=== PATIENT | female | born 1960 | race Caucasian/White ===

== ENCOUNTER 2018-01-26 17:21 | Inpatient (IN) ==
[2018-01-26] MEDS ORDERED: SODIUM CHLORIDE 0.9% 1,000 ML IV STA (18:25)
[2018-01-26] MEDS ORDERED: ONDANSETRON 4 MG/2 ML VIAL IV STA (18:25)
[2018-01-26 18:29] LABS: Basophils % 0.2 % (0.0-0.8); Eosinophils % 0.2 % (0.00-10.9); Hematocrit 23.7 VOL% (35.7-47.0); Hemoglobin 7.3 GM/DL (12.0-16.0); Immature Granulocytes % 0.6 %; Immature Granulocytes Absolute 0.03 #; Lymphocytes # 1.2 10*3/uL (1.4-4.0); Lymphocytes % 24.1 % (21.3-54.2); Mean Corpuscular HGB Conc 30.8 GM/DL (32-36); Mean Corpuscular Hemoglobin 24 PG (27-34); Mean Platelet Volume 9.9 FL (9.6-12.0); Monocytes # 0.4 10*3/uL (0.11-0.8); Monocytes % 7.8 % (1.7-12.7); Neutrophils # 3.3 10*3/uL (1.4-7.4); Neutrophils % 67.1 % (38.7-73.9); Platelet Count 209 T/CUMM (130-400); Red Cell Distribution Width 17.7 % (9.3-17.3)
[2018-01-26 18:41] LABS: Alanine Aminotransferase 19 U/L (13-56); Albumin 2.7 G/DL (3.4-5.0); Alkaline Phosphatase 135 U/L (45-117); Aspartate Amino Transferase 34 U/L (0-37); Bilirubin,Total < 0.39 MG/DL (0.2-1.0); Blood Urea Nitrogen 34 MG/DL (7-18); Calcium 8.7 MG/DL (8.5-10.1); Glucose 122 MG/DL (74-106); Osmolality,Calculated 270.7 MOS/KG (273-304); Potassium 3.3 MMOL/L (3.5-5.1); Sodium 131 MMOL/L (136-145); Total Protein 6.9 G/DL (6.4-8.3)
[2018-01-26 18:53] LABS: Apearance,Urine CLEAR (Clear); Bilirubin,Urine Negative (Negative); Blood, Urine Negative (Negative); Glucose,Urine (UA) Negative (Negative); Ketones,Urine Negative (Negative); Nitrite,Urine Negative (Negative); Protein,Urine 30 MG/DL; RBC,Urine 1 /HPF (0-4); Squamous Epithelial Cell,Urine Occasional /HPF (0-10); Urine Color Yellow (Yellow); Urine Specific Gravity 1.011 (1.001-1.035); Urine Urobilinogen < 2.0 EU/DL (0.2-1.0); WBC,Urine 2 /HPF (0-6)
[2018-01-26] MEDS ORDERED: DEXTROSE 5% NACL 0.45% 1,000 ML IV SCH (20:58)
[2018-01-26] MEDS ORDERED: PROMETHAZINE INJ 25 MG in SODIUM CHLORIDE 0.9% 50 ML IV PRN (20:58)
[2018-01-26] MEDS: POTASSIUM CHLORIDE INJ 40 MEQ in DEXTROSE 5% 1,000 ML IV SCH (21:47)
[2018-01-26] MEDS: HYDROmorphone 2 MG/1 ML VIAL IV PRN (22:48)
[2018-01-27] MEDS: HYDROmorphone 2 MG/1 ML VIAL IV PRN ×10 (01:29→23:00)
[2018-01-27] MEDS ORDERED: SODIUM CHLORIDE 0.9% 1,000 ML IV PRN (03:10)
[2018-01-27 06:34] LABS: Albumin 2.8 G/DL (3.4-5.0); Bilirubin,Total 0.4 MG/DL (0.2-1.0); Calcium 8.2 MG/DL (8.5-10.1); Osmolality,Calculated 271.4 MOS/KG (273-304); Potassium 3.1 MMOL/L (3.5-5.1); Total Protein 6.4 G/DL (6.4-8.3)
[2018-01-27 06:41] LABS: Basophils % 0.3 % (0.0-0.8); Eosinophils % 0.8 % (0.00-10.9); Hematocrit 20.7 VOL% (35.7-47.0); Immature Granulocytes % 0.5 %; Immature Granulocytes Absolute 0.02 #; Lymphocytes # 1.2 10*3/uL (1.4-4.0); Lymphocytes % 31.6 % (21.3-54.2); Mean Corpuscular HGB Conc 31.4 GM/DL (32-36); Mean Corpuscular Hemoglobin 24 PG (27-34); Mean Platelet Volume 10.4 FL (9.6-12.0); Monocytes # 0.4 10*3/uL (0.11-0.8); Monocytes % 10.2 % (1.7-12.7); Neutrophils # 2.1 10*3/uL (1.4-7.4); Neutrophils % 56.6 % (38.7-73.9); Red Blood Count 2.69 MC/CUMM (3.8-5.5); Red Cell Distribution Width 17.8 % (9.3-17.3); White Blood Count 3.7 T/CUMM (4-12)
[2018-01-27 06:45] LABS: Hemoglobin 6.5 GM/DL (12.0-16.0); Platelet Count 165 T/CUMM (130-400)
[2018-01-27] MEDS: PANTOPRAZOLE 40 MG TABLET PO SCH (08:40)
[2018-01-27] MEDS: CLOTRIMAZOLE 1% CREAM 15 GM TUBE TOP SCH ×2 (14:33→20:19)
[2018-01-27] MEDS: POTASSIUM CHLORIDE INJ 40 MEQ in DEXTROSE 5% 1,000 ML IV SCH (22:34)
[2018-01-28] MEDS: HYDROmorphone 2 MG/1 ML VIAL IV PRN ×9 (01:06→21:33)
[2018-01-28] MEDS: POTASSIUM CHLORIDE INJ 40 MEQ in DEXTROSE 5% 1,000 ML IV SCH ×3 (01:13→21:36)
[2018-01-28 05:13] LABS: Basophils % 0.2 % (0.0-0.8); Eosinophils % 0.7 % (0.00-10.9); Hematocrit 26.1 VOL% (35.7-47.0); Immature Granulocytes % 0.7 %; Immature Granulocytes Absolute 0.03 #; Lymphocytes # 0.9 10*3/uL (1.4-4.0); Lymphocytes % 21.6 % (21.3-54.2); Mean Corpuscular HGB Conc 31.8 GM/DL (32-36); Mean Corpuscular Hemoglobin 25 PG (27-34); Mean Corpuscular Volume 78.1 FL (87-102); Mean Platelet Volume 10.1 FL (9.6-12.0); Monocytes # 0.5 10*3/uL (0.11-0.8); Monocytes % 10.5 % (1.7-12.7); Neutrophils # 2.9 10*3/uL (1.4-7.4); Neutrophils % 66.3 % (38.7-73.9); Platelet Count 154 T/CUMM (130-400); Red Blood Count 3.34 MC/CUMM (3.8-5.5); Red Cell Distribution Width 17.3 % (9.3-17.3); White Blood Count 4.3 T/CUMM (4-12)
[2018-01-28 05:18] LABS: Hemoglobin 8.3 GM/DL (12.0-16.0)
[2018-01-28 05:50] LABS: Albumin 2.4 G/DL (3.4-5.0); Bilirubin,Total 0.6 MG/DL (0.2-1.0); Calcium 8.6 MG/DL (8.5-10.1); Osmolality,Calculated 267.5 MOS/KG (273-304); Potassium 3.5 MMOL/L (3.5-5.1); Total Protein 6.1 G/DL (6.4-8.3)
[2018-01-28] MEDS: PANTOPRAZOLE 40 MG TABLET PO SCH (08:42)
[2018-01-28] MEDS: CLOTRIMAZOLE 1% CREAM 15 GM TUBE TOP SCH ×2 (08:42→21:40)
[2018-01-29] MEDS: HYDROmorphone 2 MG/1 ML VIAL IV PRN ×9 (00:17→23:25)
[2018-01-29 04:56] LABS: Basophils % 0.3 % (0.0-0.8); Eosinophils % 0.3 % (0.00-10.9); Hematocrit 28.5 VOL% (35.7-47.0); Hemoglobin 8.8 GM/DL (12.0-16.0); Immature Granulocytes % 0.5 %; Immature Granulocytes Absolute 0.03 #; Lymphocytes # 1.6 10*3/uL (1.4-4.0); Lymphocytes % 26.1 % (21.3-54.2); Mean Corpuscular HGB Conc 30.9 GM/DL (32-36); Mean Corpuscular Hemoglobin 25 PG (27-34); Mean Corpuscular Volume 80.7 FL (87-102); Mean Platelet Volume 9.8 FL (9.6-12.0); Monocytes # 0.7 10*3/uL (0.11-0.8); Monocytes % 10.9 % (1.7-12.7); Neutrophils # 3.7 10*3/uL (1.4-7.4); Neutrophils % 61.9 % (38.7-73.9); Platelet Count 150 T/CUMM (130-400); Red Blood Count 3.53 MC/CUMM (3.8-5.5); Red Cell Distribution Width 17.8 % (9.3-17.3)
[2018-01-29 05:24] LABS: Albumin 2.9 G/DL (3.4-5.0); Bilirubin,Total 0.5 MG/DL (0.2-1.0); Calcium 8.5 MG/DL (8.5-10.1); Osmolality,Calculated 267.5 MOS/KG (273-304); Potassium 3.9 MMOL/L (3.5-5.1); Total Protein 6.7 G/DL (6.4-8.3)
[2018-01-29] MEDS ORDERED: cefOXitin 2,000 MG in SYRINGE 1 EACH IV ONE (08:25)
[2018-01-29] MEDS ORDERED: HYDROmorphone 2 MG/1 ML VIAL IV PRN (08:31)
[2018-01-29] MEDS: PANTOPRAZOLE 40 MG TABLET PO SCH (09:00)
[2018-01-29] MEDS: CLOTRIMAZOLE 1% CREAM 15 GM TUBE TOP SCH ×2 (09:02→20:45)
[2018-01-29] MEDS ORDERED: fentaNYL 75 MCG/HR PATCH TRANSDERM SCH (15:30)
[2018-01-30] MEDS: HYDROmorphone 2 MG/1 ML VIAL IV PRN ×8 (01:42→23:53)
[2018-01-30] MEDS: POTASSIUM CHLORIDE INJ 40 MEQ in DEXTROSE 5% 1,000 ML IV SCH (01:43)
[2018-01-30 06:21] LABS: Basophils % 0.2 % (0.0-0.8); Eosinophils % 0.2 % (0.00-10.9); Hematocrit 25.3 VOL% (35.7-47.0); Immature Granulocytes % 0.4 %; Immature Granulocytes Absolute 0.02 #; Lymphocytes # 1.2 10*3/uL (1.4-4.0); Lymphocytes % 25.5 % (21.3-54.2); Mean Corpuscular HGB Conc 31.2 GM/DL (32-36); Mean Corpuscular Hemoglobin 25 PG (27-34); Mean Corpuscular Volume 81.4 FL (87-102); Mean Platelet Volume 10.5 FL (9.6-12.0); Monocytes # 0.7 10*3/uL (0.11-0.8); Neutrophils # 2.8 10*3/uL (1.4-7.4); Neutrophils % 59.7 % (38.7-73.9); Platelet Count 127 T/CUMM (130-400); Red Blood Count 3.11 MC/CUMM (3.8-5.5); White Blood Count 4.7 T/CUMM (4-12)
[2018-01-30 06:24] LABS: Hemoglobin 7.9 GM/DL (12.0-16.0)
[2018-01-30 06:27] LABS: Albumin 2.5 G/DL (3.4-5.0); Bilirubin,Total 0.7 MG/DL (0.2-1.0); Calcium 8.6 MG/DL (8.5-10.1); Osmolality,Calculated 269.4 MOS/KG (273-304); Total Protein 6.3 G/DL (6.4-8.3)
[2018-01-30] MEDS ORDERED: cefOXitin 2,000 MG in SYRINGE 1 EACH IV ONE (08:00)
[2018-01-30] MEDS ORDERED: LIDOCAINE 1%/EPI INJ 20 ML VIAL ONE (09:24)
[2018-01-30] MEDS ORDERED: BUPIVACAINE 0.25% /EPI 10 ML VIAL ONE (09:24)
[2018-01-30] MEDS ORDERED: PROMETHAZINE 25 MG/1 ML VIAL ONE (11:08)
[2018-01-30] MEDS ORDERED: PROMETHAZINE INJ 25 MG in SODIUM CHLORIDE 0.9% 50 ML IV ONE (11:08)
[2018-01-30] MEDS: PANTOPRAZOLE 40 MG TABLET PO SCH (14:11)
[2018-01-30] MEDS: CLOTRIMAZOLE 1% CREAM 15 GM TUBE TOP SCH ×2 (14:12→21:21)
[2018-01-30] MEDS ORDERED: fentaNYL 100 MCG/HR PATCH TRANSDERM SCH (16:30)
[2018-01-31] MEDS: HYDROmorphone 2 MG/1 ML VIAL IV PRN ×11 (01:52→23:35)
[2018-01-31] MEDS: POTASSIUM CHLORIDE INJ 40 MEQ in DEXTROSE 5% 1,000 ML IV SCH ×2 (03:10→19:12)
[2018-01-31 06:11] LABS: Basophils % 0.1 % (0.0-0.8); Hematocrit 29.2 VOL% (35.7-47.0); Hemoglobin 8.9 GM/DL (12.0-16.0); Immature Granulocytes % 0.3 %; Immature Granulocytes Absolute 0.02 #; Lymphocytes # 0.8 10*3/uL (1.4-4.0); Lymphocytes % 11.2 % (21.3-54.2); Mean Corpuscular HGB Conc 30.5 GM/DL (32-36); Mean Corpuscular Hemoglobin 25 PG (27-34); Mean Corpuscular Volume 82.7 FL (87-102); Mean Platelet Volume 10.7 FL (9.6-12.0); Monocytes # 0.7 10*3/uL (0.11-0.8); Monocytes % 10.6 % (1.7-12.7); Neutrophils # 5.4 10*3/uL (1.4-7.4); Neutrophils % 77.8 % (38.7-73.9); Platelet Count 144 T/CUMM (130-400); Red Blood Count 3.53 MC/CUMM (3.8-5.5); Red Cell Distribution Width 18.4 % (9.3-17.3); White Blood Count 6.9 T/CUMM (4-12)
[2018-01-31 06:50] LABS: Albumin 2.7 G/DL (3.4-5.0); Bilirubin,Total 0.7 MG/DL (0.2-1.0); Calcium 8.6 MG/DL (8.5-10.1); Osmolality,Calculated 270.2 MOS/KG (273-304); Potassium 4.3 MMOL/L (3.5-5.1); Total Protein 7.1 G/DL (6.4-8.3)
[2018-01-31 07:41] LABS: Amorphous Crystals,Urine Occasional /HPF (Few); Apearance,Urine CLEAR (Clear); Bilirubin,Urine Negative (Negative); Blood, Urine Negative (Negative); Glucose,Urine (UA) Negative (Negative); Ketones,Urine Negative (Negative); Mucus,Urine Occasional /LPF (Occasional); Nitrite,Urine Negative (Negative); Protein,Urine Negative; RBC,Urine <1 /HPF (0-4); Squamous Epithelial Cell,Urine Occasional /HPF (0-10); Urine Color Yellow (Yellow); Urine Urobilinogen < 2.0 EU/DL (0.2-1.0); WBC,Urine <1 /HPF (0-6)
[2018-01-31] MEDS: CLOTRIMAZOLE 1% CREAM 15 GM TUBE TOP SCH ×2 (09:27→23:40)
[2018-01-31] MEDS: PANTOPRAZOLE 40 MG TABLET PO SCH ×2 (09:27→09:32)
[2018-01-31] MEDS ORDERED: fentaNYL 100 MCG/2 ML VIAL ONE (09:34)
[2018-01-31] MEDS ORDERED: MIDAZOLAM 2 MG/2 ML VIAL ONE (09:34)
[2018-01-31] MEDS ORDERED: PROPOFOL 200 MG/20 ML VIAL IV ONE (09:37)
[2018-01-31] MEDS ORDERED: GLYCOPYRROLATE 0.4 MG/2 ML VIAL ONE (09:38)
[2018-01-31] MEDS ORDERED: NEOSTIGMINE 10 MG/10 ML VIAL ONE (09:38)
[2018-01-31] MEDS ORDERED: DESFLURANE 1 UNIT/15 MINUTE INH ONE (09:38)
[2018-01-31] MEDS ORDERED: ROCURONIUM 100 MG/10 ML VIAL IV ONE (09:38)
[2018-01-31] MEDS ORDERED: ONDANSETRON 4 MG/2 ML VIAL ONE (09:38)
[2018-01-31] MEDS: fentaNYL 100 MCG/HR PATCH TRANSDERM SCH (17:40)
[2018-01-31] MEDS: fentaNYL 25 MCG/HR PATCH TRANSDERM SCH (17:41)
[2018-02-01] MEDS: HYDROmorphone 2 MG/1 ML VIAL IV PRN ×10 (01:44→23:55)
[2018-02-01 04:14] LABS: Basophils % 0.1 % (0.0-0.8); Hematocrit 25.5 VOL% (35.7-47.0); Hemoglobin 7.8 GM/DL (12.0-16.0); Immature Granulocytes % 0.4 %; Immature Granulocytes Absolute 0.03 #; Lymphocytes # 0.9 10*3/uL (1.4-4.0); Lymphocytes % 13.2 % (21.3-54.2); Mean Corpuscular HGB Conc 30.6 GM/DL (32-36); Mean Corpuscular Hemoglobin 25 PG (27-34); Mean Platelet Volume 10.5 FL (9.6-12.0); Monocytes # 0.8 10*3/uL (0.11-0.8); Monocytes % 11.7 % (1.7-12.7); Neutrophils # 5.3 10*3/uL (1.4-7.4); Neutrophils % 74.6 % (38.7-73.9); Platelet Count 125 T/CUMM (130-400); Red Blood Count 3.11 MC/CUMM (3.8-5.5); Red Cell Distribution Width 18.4 % (9.3-17.3); White Blood Count 7.1 T/CUMM (4-12)
[2018-02-01 04:35] LABS: Albumin 2.2 G/DL (3.4-5.0); Bilirubin,Total 0.7 MG/DL (0.2-1.0); Calcium 8.6 MG/DL (8.5-10.1); Osmolality,Calculated 266.7 MOS/KG (273-304); Potassium 4.3 MMOL/L (3.5-5.1); Total Protein 6.5 G/DL (6.4-8.3)
[2018-02-01] MEDS ORDERED: SODIUM CHLORIDE 0.9% 1,000 ML IV PRN (07:38)
[2018-02-01 08:04] LABS: % Iron Saturation 9.6 % (18-50); Ferritin 60.6 ng/ml (8-252)
[2018-02-01] MEDS: PANTOPRAZOLE 40 MG TABLET PO SCH (09:47)
[2018-02-01] MEDS: GABAPENTIN 100 MG CAPSULE PO SCH ×3 (09:48→20:06)
[2018-02-01] MEDS: CLOTRIMAZOLE 1% CREAM 15 GM TUBE TOP SCH ×2 (10:07→20:07)
[2018-02-01] MEDS: POTASSIUM CHLORIDE INJ 40 MEQ in DEXTROSE 5% 1,000 ML IV SCH (14:14)
[2018-02-02] MEDS: POTASSIUM CHLORIDE INJ 40 MEQ in DEXTROSE 5% 1,000 ML IV SCH (00:48)
[2018-02-02] MEDS: HYDROmorphone 2 MG/1 ML VIAL IV PRN ×8 (03:17→21:47)
[2018-02-02 04:59] LABS: Basophils % 0.4 % (0.0-0.8); Eosinophils % 0.1 % (0.00-10.9); Hematocrit 30.4 VOL% (35.7-47.0); Hemoglobin 9.4 GM/DL (12.0-16.0); Immature Granulocytes % 0.6 %; Immature Granulocytes Absolute 0.04 #; Lymphocytes # 1.3 10*3/uL (1.4-4.0); Lymphocytes % 18.2 % (21.3-54.2); Mean Corpuscular HGB Conc 30.9 GM/DL (32-36); Mean Corpuscular Hemoglobin 25 PG (27-34); Mean Corpuscular Volume 81.1 FL (87-102); Mean Platelet Volume 10.9 FL (9.6-12.0); Monocytes # 0.8 10*3/uL (0.11-0.8); Monocytes % 10.5 % (1.7-12.7); Neutrophils % 70.2 % (38.7-73.9); Platelet Count 138 T/CUMM (130-400); Red Blood Count 3.75 MC/CUMM (3.8-5.5); Red Cell Distribution Width 17.9 % (9.3-17.3); White Blood Count 7.2 T/CUMM (4-12)
[2018-02-02 05:27] LABS: Albumin 2.2 G/DL (3.4-5.0); Bilirubin,Total 0.7 MG/DL (0.2-1.0); Calcium 8.1 MG/DL (8.5-10.1); Osmolality,Calculated 261.9 MOS/KG (273-304); Potassium 4.4 MMOL/L (3.5-5.1); Total Protein 6.6 G/DL (6.4-8.3)
[2018-02-02] MEDS: CLOTRIMAZOLE 1% CREAM 15 GM TUBE TOP SCH ×2 (09:05→21:59)
[2018-02-02] MEDS: PANTOPRAZOLE 40 MG TABLET PO SCH (09:05)
[2018-02-02] MEDS: GABAPENTIN 100 MG CAPSULE PO SCH ×3 (09:05→21:52)
[2018-02-02] MEDS: SODIUM CHLORIDE 0.9% 1,000 ML IV SCH (14:03)
[2018-02-03] MEDS: HYDROmorphone 2 MG/1 ML VIAL IV PRN ×8 (00:21→20:00)
[2018-02-03] MEDS ORDERED: TEMAZEPAM 15 MG CAPSULE PO PRN (01:12)
[2018-02-03] MEDS: SODIUM CHLORIDE 0.9% 1,000 ML IV SCH ×2 (05:03→20:10)
[2018-02-03 06:33] LABS: Basophils % 0.2 % (0.0-0.8); Eosinophils % 0.4 % (0.00-10.9); Hematocrit 28.4 VOL% (35.7-47.0); Hemoglobin 9.1 GM/DL (12.0-16.0); Immature Granulocytes % 0.4 %; Immature Granulocytes Absolute 0.02 #; Lymphocytes % 19.9 % (21.3-54.2); Mean Corpuscular Hemoglobin 25 PG (27-34); Mean Corpuscular Volume 78.7 FL (87-102); Mean Platelet Volume 10.8 FL (9.6-12.0); Monocytes # 0.6 10*3/uL (0.11-0.8); Monocytes % 11.7 % (1.7-12.7); Neutrophils # 3.3 10*3/uL (1.4-7.4); Neutrophils % 67.4 % (38.7-73.9); Platelet Count 168 T/CUMM (130-400); Red Blood Count 3.61 MC/CUMM (3.8-5.5); Red Cell Distribution Width 17.6 % (9.3-17.3); White Blood Count 4.9 T/CUMM (4-12)
[2018-02-03 07:17] LABS: Bilirubin,Total 0.5 MG/DL (0.2-1.0); Calcium 8.1 MG/DL (8.5-10.1)
[2018-02-03 07:18] LABS: Osmolality,Calculated 267.4 MOS/KG (273-304); Potassium 3.7 MMOL/L (3.5-5.1)
[2018-02-03] MEDS: fentaNYL 25 MCG/HR PATCH TRANSDERM SCH (08:41)
[2018-02-03] MEDS: fentaNYL 100 MCG/HR PATCH TRANSDERM SCH (08:42)
[2018-02-03] MEDS: PANTOPRAZOLE 40 MG TABLET PO SCH (08:43)
[2018-02-03] MEDS: GABAPENTIN 100 MG CAPSULE PO SCH (08:43)
[2018-02-03] MEDS: CLOTRIMAZOLE 1% CREAM 15 GM TUBE TOP SCH (09:35)
[2018-02-03] MEDS: DOXEPIN 25 MG CAPSULE PO SCH (20:09)
[2018-02-03] MEDS ORDERED: GABAPENTIN 100 MG CAPSULE PO SCH (21:00)
[2018-02-04] MEDS: HYDROmorphone 2 MG/1 ML VIAL IV PRN ×5 (02:09→22:07)
[2018-02-04 04:51] LABS: Basophils % 0.2 % (0.0-0.8); Eosinophils % 0.2 % (0.00-10.9); Hematocrit 29.6 VOL% (35.7-47.0); Hemoglobin 9.3 GM/DL (12.0-16.0); Immature Granulocytes % 0.2 %; Immature Granulocytes Absolute 0.01 #; Lymphocytes # 0.8 10*3/uL (1.4-4.0); Lymphocytes % 15.1 % (21.3-54.2); Mean Corpuscular HGB Conc 31.4 GM/DL (32-36); Mean Corpuscular Hemoglobin 25 PG (27-34); Mean Corpuscular Volume 80.4 FL (87-102); Mean Platelet Volume 10.1 FL (9.6-12.0); Monocytes # 0.6 10*3/uL (0.11-0.8); Monocytes % 12.2 % (1.7-12.7); Neutrophils # 3.7 10*3/uL (1.4-7.4); Neutrophils % 72.1 % (38.7-73.9); Platelet Count 205 T/CUMM (130-400); Red Blood Count 3.68 MC/CUMM (3.8-5.5); Red Cell Distribution Width 17.4 % (9.3-17.3); White Blood Count 5.2 T/CUMM (4-12)
[2018-02-04 04:56] LABS: Basophils % 0.2 % (0.0-0.8); Eosinophils % 0.2 % (0.00-10.9); Hemoglobin 9.2 GM/DL (12.0-16.0); Immature Granulocytes % 0.4 %; Immature Granulocytes Absolute 0.02 #; Lymphocytes # 0.7 10*3/uL (1.4-4.0); Lymphocytes % 13.8 % (21.3-54.2); Mean Corpuscular HGB Conc 30.7 GM/DL (32-36); Mean Corpuscular Hemoglobin 25 PG (27-34); Mean Corpuscular Volume 82.6 FL (87-102); Mean Platelet Volume 10.5 FL (9.6-12.0); Monocytes # 0.7 10*3/uL (0.11-0.8); Monocytes % 13.4 % (1.7-12.7); Neutrophils # 3.9 10*3/uL (1.4-7.4); Platelet Count 207 T/CUMM (130-400); Red Blood Count 3.63 MC/CUMM (3.8-5.5); Red Cell Distribution Width 17.4 % (9.3-17.3); White Blood Count 5.4 T/CUMM (4-12)
[2018-02-04 05:24] LABS: Bilirubin,Total 0.6 MG/DL (0.2-1.0); Calcium 8.8 MG/DL (8.5-10.1); Potassium 3.7 MMOL/L (3.5-5.1); Total Protein 6.5 G/DL (6.4-8.3)
[2018-02-04] MEDS: CLOTRIMAZOLE 1% CREAM 15 GM TUBE TOP SCH ×3 (07:12→20:43)
[2018-02-04] MEDS: ONDANSETRON 4 MG/2 ML VIAL IV PRN (07:16)
[2018-02-04] MEDS: SODIUM CHLORIDE 0.9% 1,000 ML IV SCH ×3 (07:52→18:47)
[2018-02-04] MEDS: FLUCONAZOLE 100 MG TABLET PO SCH (09:30)
[2018-02-04] MEDS: PANTOPRAZOLE 40 MG TABLET PO SCH (09:30)
[2018-02-04] MEDS: MEROPENEM 500 MG in SYRINGE 1 EACH IV SCH (13:55)
[2018-02-04] MEDS: ACETAMINOPHEN 325 MG TABLET PO PRN (13:55)
[2018-02-04] MEDS: DOXEPIN 25 MG CAPSULE PO SCH (20:42)
[2018-02-05] MEDS: MEROPENEM 500 MG in SYRINGE 1 EACH IV SCH ×2 (01:20→13:16)
[2018-02-05] MEDS: ACETAMINOPHEN 325 MG TABLET PO PRN (01:26)
[2018-02-05 02:33] LABS: Apearance,Urine CLOUDY (Clear); Bacteria,Urine Many /HPF (Few); Bilirubin,Urine Negative (Negative); Blood, Urine Moderate mg/dL (Negative); Glucose,Urine (UA) Negative (Negative); Ketones,Urine Negative (Negative); Mucus,Urine Occasional /LPF (Occasional); Nitrite,Urine Negative (Negative); Protein,Urine 100 MG/DL; RBC,Urine 135 /HPF (0-4); Squamous Epithelial Cell,Urine Occasional /HPF (0-10); Urine Color Amber (Yellow); Urine Specific Gravity 1.011 (1.001-1.035); WBC,Urine 52 /HPF (0-6)
[2018-02-05] MEDS: HYDROmorphone 2 MG/1 ML VIAL IV PRN ×2 (09:02→20:53)
[2018-02-05] MEDS: FLUCONAZOLE 100 MG TABLET PO SCH (09:04)
[2018-02-05] MEDS: CLOTRIMAZOLE 1% CREAM 15 GM TUBE TOP SCH ×2 (09:04→20:57)
[2018-02-05] MEDS: PANTOPRAZOLE 40 MG TABLET PO SCH (09:04)
[2018-02-05] MEDS: ALUMINUM/MAGNES/SIMETH MAX STR 30 ML UDCUP PO PRN ×2 (12:12→17:03)
[2018-02-05] MEDS: SODIUM CHLORIDE 0.9% 1,000 ML IV SCH (13:18)
[2018-02-05] MEDS: DOXEPIN 100 MG CAPSULE PO SCH (20:56)
[2018-02-06] MEDS: SODIUM CHLORIDE 0.9% 1,000 ML IV SCH ×3 (01:35→22:20)
[2018-02-06] MEDS: HYDROmorphone 2 MG/1 ML VIAL IV PRN ×6 (01:36→20:34)
[2018-02-06] MEDS: MEROPENEM 500 MG in SYRINGE 1 EACH IV SCH ×2 (01:39→13:23)
[2018-02-06 06:01] LABS: Basophils % 0.2 % (0.0-0.8); Eosinophils % 0.4 % (0.00-10.9); Hematocrit 24.7 VOL% (35.7-47.0); Hemoglobin 7.8 GM/DL (12.0-16.0); Immature Granulocytes % 7.3 %; Immature Granulocytes Absolute 0.33 #; Lymphocytes # 0.9 10*3/uL (1.4-4.0); Lymphocytes % 18.7 % (21.3-54.2); Mean Corpuscular HGB Conc 31.6 GM/DL (32-36); Mean Corpuscular Hemoglobin 25 PG (27-34); Mean Corpuscular Volume 80.5 FL (87-102); Monocytes # 0.7 10*3/uL (0.11-0.8); Monocytes % 15.4 % (1.7-12.7); Neutrophils # 2.6 10*3/uL (1.4-7.4); Platelet Count 208 T/CUMM (130-400); Red Blood Count 3.07 MC/CUMM (3.8-5.5); Red Cell Distribution Width 17.7 % (9.3-17.3); White Blood Count 4.6 T/CUMM (4-12)
[2018-02-06 06:31] LABS: Band Neutrophils 6 % (0-10); Hypochromasia 1+; Lymphocytes 17 % (20-55); Ovalocytes Slight; Platelet Estimate Adequate; Segmented Neutrophils 68 % (50-85); Total Cells Counted 100
[2018-02-06] MEDS ORDERED: SODIUM CHLORIDE 0.9% 1,000 ML IV PRN ×2 (09:01→09:58)
[2018-02-06] MEDS: ALUMINUM/MAGNES/SIMETH MAX STR 30 ML UDCUP PO PRN (09:07)
[2018-02-06] MEDS: fentaNYL 100 MCG/HR PATCH TRANSDERM SCH (09:07)
[2018-02-06] MEDS: PANTOPRAZOLE 40 MG TABLET PO SCH (09:07)
[2018-02-06] MEDS: FLUCONAZOLE 100 MG TABLET PO SCH (09:07)
[2018-02-06] MEDS: fentaNYL 25 MCG/HR PATCH TRANSDERM SCH (09:08)
[2018-02-06] MEDS: CLOTRIMAZOLE 1% CREAM 15 GM TUBE TOP SCH ×2 (09:08→20:45)
[2018-02-06] MEDS: metroNIDAZOLE INJ 500 MG in PREMIX 1 EACH IV SCH (18:16)
[2018-02-06] MEDS: DOXEPIN 100 MG CAPSULE PO SCH (20:37)
[2018-02-07] MEDS: HYDROmorphone 2 MG/1 ML VIAL IV PRN ×6 (01:41→18:47)
[2018-02-07] MEDS: metroNIDAZOLE INJ 500 MG in PREMIX 1 EACH IV SCH ×4 (01:44→21:02)
[2018-02-07] MEDS: MEROPENEM 500 MG in SYRINGE 1 EACH IV SCH ×2 (02:39→15:08)
[2018-02-07 05:14] LABS: Basophils % 0.4 % (0.0-0.8); Eosinophils % 0.6 % (0.00-10.9); Hemoglobin 9.2 GM/DL (12.0-16.0); Immature Granulocytes Absolute 0.25 #; Lymphocytes # 0.9 10*3/uL (1.4-4.0); Lymphocytes % 18.2 % (21.3-54.2); Mean Corpuscular HGB Conc 32.9 GM/DL (32-36); Mean Corpuscular Hemoglobin 27 PG (27-34); Mean Corpuscular Volume 80.7 FL (87-102); Mean Platelet Volume 10.7 FL (9.6-12.0); Monocytes # 0.6 10*3/uL (0.11-0.8); Monocytes % 11.6 % (1.7-12.7); NRBC # 0.03 10*3/uL; Neutrophils # 3.2 10*3/uL (1.4-7.4); Neutrophils % 64.2 % (38.7-73.9); Platelet Count 215 T/CUMM (130-400); Red Blood Count 3.47 MC/CUMM (3.8-5.5); Red Cell Distribution Width 17.1 % (9.3-17.3)
[2018-02-07 05:35] LABS: Alanine Aminotransferase < 9 U/L (13-56); Albumin 1.6 G/DL (3.4-5.0); Alkaline Phosphatase 75 U/L (45-117); Aspartate Amino Transferase 11 U/L (0-37); Blood Urea Nitrogen 19 MG/DL (7-18); Calcium 7.4 MG/DL (8.5-10.1); Glucose 91 MG/DL (74-106); Osmolality,Calculated 271.1 MOS/KG (273-304); Potassium 3.4 MMOL/L (3.5-5.1); Sodium 135 MMOL/L (136-145); Total Protein 5.4 G/DL (6.4-8.3)
[2018-02-07 05:53] LABS: Band Neutrophils 2 % (0-10); Eosinophils 2 % (0-10); Hypochromasia 1+; Lymphocytes 20 % (20-55); Ovalocytes Slight; Platelet Estimate Adequate; Segmented Neutrophils 66 % (50-85); Total Cells Counted 100
[2018-02-07] MEDS: FLUCONAZOLE 100 MG TABLET PO SCH (08:32)
[2018-02-07] MEDS: PANTOPRAZOLE 40 MG TABLET PO SCH (08:32)
[2018-02-07] MEDS: CLOTRIMAZOLE 1% CREAM 15 GM TUBE TOP SCH (08:36)
[2018-02-07] MEDS: SODIUM CHLORIDE 0.9% 1,000 ML IV SCH (15:46)
[2018-02-07] MEDS: DOXEPIN 100 MG CAPSULE PO SCH (21:02)
[2018-02-08] MEDS: HYDROmorphone 2 MG/1 ML VIAL IV PRN ×7 (00:22→20:23)
[2018-02-08] MEDS: CLOTRIMAZOLE 1% CREAM 15 GM TUBE TOP SCH ×3 (01:35→22:33)
[2018-02-08] MEDS: MEROPENEM 500 MG in SYRINGE 1 EACH IV SCH ×2 (01:37→13:58)
[2018-02-08] MEDS: metroNIDAZOLE INJ 500 MG in PREMIX 1 EACH IV SCH ×4 (04:01→21:04)
[2018-02-08] MEDS: ACETAMINOPHEN 325 MG TABLET PO PRN (04:43)
[2018-02-08] MEDS: SODIUM CHLORIDE 0.9% 1,000 ML IV SCH ×2 (04:46→20:22)
[2018-02-08 05:31] LABS: Basophils % 0.3 % (0.0-0.8); Eosinophils % 0.3 % (0.00-10.9); Hematocrit 29.9 VOL% (35.7-47.0); Hemoglobin 9.5 GM/DL (12.0-16.0); Immature Granulocytes % 9.9 %; Immature Granulocytes Absolute 0.61 #; Lymphocytes # 0.9 10*3/uL (1.4-4.0); Lymphocytes % 13.9 % (21.3-54.2); Mean Corpuscular HGB Conc 31.8 GM/DL (32-36); Mean Corpuscular Hemoglobin 26 PG (27-34); Mean Corpuscular Volume 82.6 FL (87-102); Mean Platelet Volume 10.3 FL (9.6-12.0); Monocytes # 0.5 10*3/uL (0.11-0.8); Monocytes % 8.6 % (1.7-12.7); Neutrophils # 4.1 10*3/uL (1.4-7.4); Platelet Count 251 T/CUMM (130-400); Red Blood Count 3.62 MC/CUMM (3.8-5.5); Red Cell Distribution Width 17.5 % (9.3-17.3); White Blood Count 6.2 T/CUMM (4-12)
[2018-02-08 06:11] LABS: Anisocytosis 1+; Band Neutrophils 12 % (0-10); Lymphocytes 13 % (20-55); Metamyelocytes 3 %; Myelocytes 1 %; Poikilocytosis 1+; Segmented Neutrophils 59 % (50-85); Total Cells Counted 100
[2018-02-08 06:12] LABS: Ovalocytes Slight
[2018-02-08 06:29] LABS: Alanine Aminotransferase < 9 U/L (13-56); Albumin 1.5 G/DL (3.4-5.0); Alkaline Phosphatase 74 U/L (45-117); Aspartate Amino Transferase 16 U/L (0-37); Blood Urea Nitrogen 20 MG/DL (7-18); Calcium 7.7 MG/DL (8.5-10.1); Glucose 100 MG/DL (74-106); Osmolality,Calculated 277.7 MOS/KG (273-304); Potassium 3.3 MMOL/L (3.5-5.1); Sodium 138 MMOL/L (136-145); Total Protein 5.3 G/DL (6.4-8.3)
[2018-02-08] MEDS: PANTOPRAZOLE 40 MG TABLET PO SCH (08:23)
[2018-02-08] MEDS: fentaNYL 100 MCG/HR PATCH TRANSDERM SCH (08:24)
[2018-02-08] MEDS: fentaNYL 25 MCG/HR PATCH TRANSDERM SCH (08:24)
[2018-02-08] MEDS: FLUCONAZOLE 100 MG TABLET PO SCH (08:25)
[2018-02-08 16:51] LABS: Apearance,Urine Slightly Hazy (Clear); Bacteria,Urine Occasional /HPF (Few); Bilirubin,Urine Negative (Negative); Blood, Urine Small mg/dL (Negative); Glucose,Urine (UA) Negative (Negative); Ketones,Urine Negative (Negative); Mucus,Urine Occasional /LPF (Occasional); Nitrite,Urine Negative (Negative); Protein,Urine Negative; RBC,Urine 2 /HPF (0-4); Squamous Epithelial Cell,Urine Moderate /HPF (0-10); Urine Color Yellow (Yellow); Urine Specific Gravity 1.011 (1.001-1.035); Urine Urobilinogen < 2.0 EU/DL (0.2-1.0); WBC,Urine 5 /HPF (0-6)
[2018-02-08] MEDS: DOXEPIN 100 MG CAPSULE PO SCH (20:15)
[2018-02-09] MEDS: MEROPENEM 500 MG in SYRINGE 1 EACH IV SCH ×2 (00:49→14:50)
[2018-02-09] MEDS: metroNIDAZOLE INJ 500 MG in PREMIX 1 EACH IV SCH ×4 (03:29→21:14)
[2018-02-09] MEDS: HYDROmorphone 2 MG/1 ML VIAL IV PRN ×4 (03:30→20:27)
[2018-02-09 04:34] LABS: Basophils % 0.5 % (0.0-0.8); Eosinophils % 0.5 % (0.00-10.9); Hematocrit 27.8 VOL% (35.7-47.0); Immature Granulocytes % 13.2 %; Immature Granulocytes Absolute 0.86 #; Lymphocytes # 0.9 10*3/uL (1.4-4.0); Lymphocytes % 13.7 % (21.3-54.2); Mean Corpuscular HGB Conc 32.4 GM/DL (32-36); Mean Corpuscular Hemoglobin 26 PG (27-34); Mean Corpuscular Volume 81.3 FL (87-102); Mean Platelet Volume 10.6 FL (9.6-12.0); Monocytes # 0.5 10*3/uL (0.11-0.8); Monocytes % 8.3 % (1.7-12.7); Neutrophils # 4.2 10*3/uL (1.4-7.4); Neutrophils % 63.8 % (38.7-73.9); Platelet Count 259 T/CUMM (130-400); Red Blood Count 3.42 MC/CUMM (3.8-5.5); Red Cell Distribution Width 17.9 % (9.3-17.3); White Blood Count 6.5 T/CUMM (4-12)
[2018-02-09 04:48] LABS: Alanine Aminotransferase < 9 U/L (13-56); Albumin 1.4 G/DL (3.4-5.0); Alkaline Phosphatase 70 U/L (45-117); Aspartate Amino Transferase 13 U/L (0-37); Bilirubin,Total < 0.39 MG/DL (0.2-1.0); Blood Urea Nitrogen 16 MG/DL (7-18); Calcium 7.8 MG/DL (8.5-10.1); Glucose 102 MG/DL (74-106); Osmolality,Calculated 273.8 MOS/KG (273-304); Potassium 3.2 MMOL/L (3.5-5.1); Sodium 137 MMOL/L (136-145); Total Protein 5.1 G/DL (6.4-8.3)
[2018-02-09 05:21] LABS: Atypical Lymphocytes Few; Band Neutrophils 7 % (0-10); Hypochromasia 1+; Lymphocytes 13 % (20-55); Metamyelocytes 1 %; Microcytosis 1+; Myelocytes 1 %; Platelet Estimate Normal; Segmented Neutrophils 67 % (50-85); Total Cells Counted 100
[2018-02-09] MEDS: FLUCONAZOLE 100 MG TABLET PO SCH (09:47)
[2018-02-09] MEDS: PANTOPRAZOLE 40 MG TABLET PO SCH (09:47)
[2018-02-09] MEDS: CLOTRIMAZOLE 1% CREAM 15 GM TUBE TOP SCH (09:57)
[2018-02-09] MEDS: SODIUM CHLORIDE 0.9% 1,000 ML IV SCH ×2 (14:45→14:47)
[2018-02-09] MEDS: DOXEPIN 25 MG CAPSULE PO SCH (20:27)
[2018-02-09] MEDS: DOXEPIN 100 MG CAPSULE PO SCH (20:27)
[2018-02-10] MEDS: CLOTRIMAZOLE 1% CREAM 15 GM TUBE TOP SCH ×3 (01:33→21:06)
[2018-02-10] MEDS: MEROPENEM 500 MG in SYRINGE 1 EACH IV SCH ×2 (01:35→13:30)
[2018-02-10] MEDS: HYDROmorphone 2 MG/1 ML VIAL IV PRN ×6 (01:38→20:59)
[2018-02-10] MEDS: metroNIDAZOLE INJ 500 MG in PREMIX 1 EACH IV SCH ×4 (04:53→21:03)
[2018-02-10 05:04] LABS: Basophils # 0.1 10*3/uL (0.0-0.2); Basophils % 0.8 % (0.0-0.8); Eosinophils % 0.3 % (0.00-10.9); Hematocrit 28.5 VOL% (35.7-47.0); Hemoglobin 9.1 GM/DL (12.0-16.0); Immature Granulocytes % 16.9 %; Immature Granulocytes Absolute 1.12 #; Lymphocytes # 0.9 10*3/uL (1.4-4.0); Lymphocytes % 14.2 % (21.3-54.2); Mean Corpuscular HGB Conc 31.9 GM/DL (32-36); Mean Corpuscular Hemoglobin 26 PG (27-34); Mean Corpuscular Volume 81.4 FL (87-102); Mean Platelet Volume 10.4 FL (9.6-12.0); Monocytes # 0.6 10*3/uL (0.11-0.8); Monocytes % 9.5 % (1.7-12.7); NRBC # 0.02 10*3/uL; Neutrophils # 3.9 10*3/uL (1.4-7.4); Neutrophils % 58.3 % (38.7-73.9); Platelet Count 276 T/CUMM (130-400); White Blood Count 6.6 T/CUMM (4-12)
[2018-02-10 05:45] LABS: Alanine Aminotransferase < 6 U/L (13-56); Albumin 1.6 G/DL (3.4-5.0); Alkaline Phosphatase 61 U/L (45-117); Aspartate Amino Transferase 14 U/L (0-37); Blood Urea Nitrogen 13 MG/DL (7-18); Calcium 7.8 MG/DL (8.5-10.1); Glucose 89 MG/DL (74-106); Osmolality,Calculated 277.4 MOS/KG (273-304); Potassium 3.1 MMOL/L (3.5-5.1); Sodium 140 MMOL/L (136-145)
[2018-02-10 05:57] LABS: Band Neutrophils 9 % (0-10); Hypochromasia 1+; Lymphocytes 12 % (20-55); Metamyelocytes 2 %; Myelocytes 4 %; Ovalocytes Slight; Platelet Estimate Adequate; Promyelocytes 1 %; Segmented Neutrophils 63 % (50-85); Total Cells Counted 100
[2018-02-10 05:58] LABS: Atypical Lymphocytes Few; Microcytosis 1+
[2018-02-10] MEDS: PANTOPRAZOLE 40 MG TABLET PO SCH (09:19)
[2018-02-10] MEDS: FLUCONAZOLE 100 MG TABLET PO SCH (09:19)
[2018-02-10] MEDS: SODIUM CHLORIDE 0.9% 1,000 ML IV SCH (10:55)
[2018-02-10] MEDS: DOXEPIN 25 MG CAPSULE PO SCH (20:51)
[2018-02-10] MEDS: DOXEPIN 100 MG CAPSULE PO SCH (20:51)
[2018-02-11] MEDS: MEROPENEM 500 MG in SYRINGE 1 EACH IV SCH ×2 (01:53→13:35)
[2018-02-11] MEDS: SODIUM CHLORIDE 0.9% 1,000 ML IV SCH ×3 (01:58→21:45)
[2018-02-11] MEDS: HYDROmorphone 2 MG/1 ML VIAL IV PRN ×7 (02:53→21:32)
[2018-02-11] MEDS: metroNIDAZOLE INJ 500 MG in PREMIX 1 EACH IV SCH ×4 (03:53→21:35)
[2018-02-11 05:08] LABS: Basophils % 0.7 % (0.0-0.8); Eosinophils % 0.4 % (0.00-10.9); Hematocrit 27.6 VOL% (35.7-47.0); Hemoglobin 8.5 GM/DL (12.0-16.0); Immature Granulocytes % 12.9 %; Lymphocytes # 0.9 10*3/uL (1.4-4.0); Lymphocytes % 17.2 % (21.3-54.2); Mean Corpuscular HGB Conc 30.8 GM/DL (32-36); Mean Corpuscular Hemoglobin 26 PG (27-34); Mean Corpuscular Volume 84.4 FL (87-102); Mean Platelet Volume 10.1 FL (9.6-12.0); Monocytes # 0.5 10*3/uL (0.11-0.8); Monocytes % 9.6 % (1.7-12.7); Neutrophils # 3.2 10*3/uL (1.4-7.4); Neutrophils % 59.2 % (38.7-73.9); Platelet Count 295 T/CUMM (130-400); Red Blood Count 3.27 MC/CUMM (3.8-5.5); Red Cell Distribution Width 18.1 % (9.3-17.3); White Blood Count 5.4 T/CUMM (4-12)
[2018-02-11 05:33] LABS: Alanine Aminotransferase < 6 U/L (13-56); Albumin 1.6 G/DL (3.4-5.0); Alkaline Phosphatase 64 U/L (45-117); Aspartate Amino Transferase 15 U/L (0-37); Bilirubin,Total < 0.39 MG/DL (0.2-1.0); Blood Urea Nitrogen 9 MG/DL (7-18); Calcium 7.4 MG/DL (8.5-10.1); Glucose 85 MG/DL (74-106); Osmolality,Calculated 276.4 MOS/KG (273-304); Sodium 140 MMOL/L (136-145); Total Protein 5.2 G/DL (6.4-8.3)
[2018-02-11 05:36] LABS: Band Neutrophils 5 % (0-10); Hypochromasia 1+; Lymphocytes 17 % (20-55); Metamyelocytes 1 %; Microcytosis 1+; Myelocytes 2 %; Platelet Estimate Adequate; Promyelocytes 1 %; Segmented Neutrophils 70 % (50-85); Total Cells Counted 100
[2018-02-11 05:37] LABS: Atypical Lymphocytes Few
[2018-02-11] MEDS: POTASSIUM CHLORIDE 20 MEQ TABLET PO SCH (09:52)
[2018-02-11] MEDS: FLUCONAZOLE 100 MG TABLET PO SCH (09:52)
[2018-02-11] MEDS: PANTOPRAZOLE 40 MG TABLET PO SCH (09:53)
[2018-02-11] MEDS: CLOTRIMAZOLE 1% CREAM 15 GM TUBE TOP SCH ×2 (09:53→21:38)
[2018-02-11] MEDS: fentaNYL 25 MCG/HR PATCH TRANSDERM SCH (09:53)
[2018-02-11] MEDS: fentaNYL 100 MCG/HR PATCH TRANSDERM SCH (09:53)
[2018-02-11] MEDS: DOXEPIN 100 MG CAPSULE PO SCH (21:27)
[2018-02-11] MEDS: DOXEPIN 25 MG CAPSULE PO SCH (21:27)
[2018-02-12] MEDS: MEROPENEM 500 MG in SYRINGE 1 EACH IV SCH ×2 (01:45→13:41)
[2018-02-12] MEDS: metroNIDAZOLE INJ 500 MG in PREMIX 1 EACH IV SCH (03:49)
[2018-02-12] MEDS: SODIUM CHLORIDE 0.9% 1,000 ML IV SCH ×2 (03:49→18:01)
[2018-02-12] MEDS: HYDROmorphone 2 MG/1 ML VIAL IV PRN ×6 (03:50→20:30)
[2018-02-12 05:45] LABS: Basophils % 0.5 % (0.0-0.8); Eosinophils % 0.2 % (0.00-10.9); Hemoglobin 8.6 GM/DL (12.0-16.0); Immature Granulocytes % 10.5 %; Lymphocytes # 0.8 10*3/uL (1.4-4.0); Lymphocytes % 13.3 % (21.3-54.2); Mean Corpuscular HGB Conc 31.9 GM/DL (32-36); Mean Corpuscular Hemoglobin 26 PG (27-34); Mean Corpuscular Volume 81.6 FL (87-102); Mean Platelet Volume 9.8 FL (9.6-12.0); Monocytes # 0.5 10*3/uL (0.11-0.8); Monocytes % 9.5 % (1.7-12.7); NRBC # 0.02 10*3/uL; Neutrophils # 3.8 10*3/uL (1.4-7.4); Platelet Count 330 T/CUMM (130-400); Red Blood Count 3.31 MC/CUMM (3.8-5.5); Red Cell Distribution Width 18.3 % (9.3-17.3); White Blood Count 5.7 T/CUMM (4-12)
[2018-02-12 06:09] LABS: Band Neutrophils 3 % (0-10); Eosinophils 1 % (0-10); Hypochromasia 1+; Lymphocytes 11 % (20-55); Myelocytes 4 %; Ovalocytes Slight; Platelet Estimate Adequate; Segmented Neutrophils 72 % (50-85); Total Cells Counted 100
[2018-02-12 06:10] LABS: Microcytosis 1+
[2018-02-12 06:30] LABS: Alanine Aminotransferase < 6 U/L (13-56); Albumin 1.4 G/DL (3.4-5.0); Alkaline Phosphatase 61 U/L (45-117); Aspartate Amino Transferase 15 U/L (0-37); Bilirubin,Total < 0.39 MG/DL (0.2-1.0); Blood Urea Nitrogen 7 MG/DL (7-18); Calcium 7.2 MG/DL (8.5-10.1); Glucose 98 MG/DL (74-106); Osmolality,Calculated 276.4 MOS/KG (273-304); Potassium 3.5 MMOL/L (3.5-5.1); Sodium 140 MMOL/L (136-145); Total Protein 5.1 G/DL (6.4-8.3)
[2018-02-12] MEDS: POTASSIUM CHLORIDE 20 MEQ TABLET PO SCH (10:14)
[2018-02-12] MEDS: PANTOPRAZOLE 40 MG TABLET PO SCH (10:14)
[2018-02-12] MEDS: CLOTRIMAZOLE 1% CREAM 15 GM TUBE TOP SCH ×2 (10:15→23:19)
[2018-02-12] MEDS: FLUCONAZOLE 100 MG TABLET PO SCH (10:15)
[2018-02-12] MEDS: DOXEPIN 25 MG CAPSULE PO SCH (20:30)
[2018-02-12] MEDS: DOXEPIN 100 MG CAPSULE PO SCH (20:30)
[2018-02-13] MEDS: MEROPENEM 500 MG in SYRINGE 1 EACH IV SCH (02:15)
[2018-02-13] MEDS: HYDROmorphone 2 MG/1 ML VIAL IV PRN ×8 (02:17→20:15)
[2018-02-13] MEDS: CLOTRIMAZOLE 1% CREAM 15 GM TUBE TOP SCH (09:23)
[2018-02-13] MEDS: POTASSIUM CHLORIDE 20 MEQ TABLET PO SCH (09:23)
[2018-02-13] MEDS: PANTOPRAZOLE 40 MG TABLET PO SCH (09:23)
[2018-02-13] MEDS: FLUCONAZOLE 100 MG TABLET PO SCH (09:23)
[2018-02-13] MEDS: SODIUM CHLORIDE 0.9% 1,000 ML IV SCH (09:29)
[2018-02-13] MEDS: DOXEPIN 25 MG CAPSULE PO SCH (20:14)
[2018-02-13] MEDS: DOXEPIN 100 MG CAPSULE PO SCH (20:14)
[2018-02-14] MEDS: CLOTRIMAZOLE 1% CREAM 15 GM TUBE TOP SCH ×3 (01:28→21:22)
[2018-02-14] MEDS: HYDROmorphone 2 MG/1 ML VIAL IV PRN ×7 (01:28→19:34)
[2018-02-14] MEDS: SODIUM CHLORIDE 0.9% 1,000 ML IV SCH ×2 (04:46→17:06)
[2018-02-14 06:26] LABS: Basophils % 0.4 % (0.0-0.8); Eosinophils % 0.2 % (0.00-10.9); Hematocrit 28.4 VOL% (35.7-47.0); Hemoglobin 8.7 GM/DL (12.0-16.0); Immature Granulocytes % 6.1 %; Immature Granulocytes Absolute 0.28 #; Lymphocytes # 0.6 10*3/uL (1.4-4.0); Lymphocytes % 13.5 % (21.3-54.2); Mean Corpuscular HGB Conc 30.6 GM/DL (32-36); Mean Corpuscular Hemoglobin 26 PG (27-34); Mean Corpuscular Volume 84.5 FL (87-102); Monocytes # 0.5 10*3/uL (0.11-0.8); Neutrophils # 3.2 10*3/uL (1.4-7.4); Neutrophils % 69.8 % (38.7-73.9); Platelet Count 283 T/CUMM (130-400); Red Blood Count 3.36 MC/CUMM (3.8-5.5); Red Cell Distribution Width 18.4 % (9.3-17.3); White Blood Count 4.6 T/CUMM (4-12)
[2018-02-14 06:47] LABS: Band Neutrophils 5 % (0-10); Hypochromasia 1+; Lymphocytes 11 % (20-55); Microcytosis Slight; Myelocytes 2 %; Platelet Estimate Adequate; Segmented Neutrophils 75 % (50-85); Total Cells Counted 100
[2018-02-14 06:48] LABS: Atypical Lymphocytes Few
[2018-02-14 07:10] LABS: Alanine Aminotransferase < 9 U/L (13-56); Albumin 1.5 G/DL (3.4-5.0); Alkaline Phosphatase 62 U/L (45-117); Aspartate Amino Transferase 23 U/L (0-37); Blood Urea Nitrogen 6 MG/DL (7-18); Calcium 7.4 MG/DL (8.5-10.1); Glucose 92 MG/DL (74-106); Osmolality,Calculated 274.5 MOS/KG (273-304); Potassium 3.6 MMOL/L (3.5-5.1); Sodium 139 MMOL/L (136-145); Total Protein 5.7 G/DL (6.4-8.3)
[2018-02-14] MEDS: FLUCONAZOLE 100 MG TABLET PO SCH (08:39)
[2018-02-14] MEDS: fentaNYL 25 MCG/HR PATCH TRANSDERM SCH (08:39)
[2018-02-14] MEDS: PANTOPRAZOLE 40 MG TABLET PO SCH (08:39)
[2018-02-14] MEDS: POTASSIUM CHLORIDE 20 MEQ TABLET PO SCH (08:39)
[2018-02-14] MEDS: fentaNYL 100 MCG/HR PATCH TRANSDERM SCH (08:40)
[2018-02-14] MEDS: SUCRALFATE 1 GM/10 ML UDCUP PO SCH ×3 (10:42→21:05)
[2018-02-14] MEDS: DOXEPIN 25 MG CAPSULE PO SCH (21:05)
[2018-02-14] MEDS: DOXEPIN 100 MG CAPSULE PO SCH (21:05)
[2018-02-15] MEDS: HYDROmorphone 2 MG/1 ML VIAL IV PRN ×6 (03:11→19:43)
[2018-02-15 04:21] LABS: Basophils % 0.4 % (0.0-0.8); Eosinophils % 0.4 % (0.00-10.9); Hematocrit 24.8 VOL% (35.7-47.0); Hemoglobin 7.9 GM/DL (12.0-16.0); Immature Granulocytes % 4.5 %; Immature Granulocytes Absolute 0.12 #; Lymphocytes # 0.4 10*3/uL (1.4-4.0); Lymphocytes % 13.8 % (21.3-54.2); Mean Corpuscular HGB Conc 31.9 GM/DL (32-36); Mean Corpuscular Hemoglobin 26 PG (27-34); Mean Corpuscular Volume 82.1 FL (87-102); Mean Platelet Volume 9.8 FL (9.6-12.0); Monocytes # 0.3 10*3/uL (0.11-0.8); Monocytes % 11.2 % (1.7-12.7); Neutrophils # 1.9 10*3/uL (1.4-7.4); Neutrophils % 69.7 % (38.7-73.9); Platelet Count 206 T/CUMM (130-400); Red Blood Count 3.02 MC/CUMM (3.8-5.5); Red Cell Distribution Width 18.5 % (9.3-17.3); White Blood Count 2.7 T/CUMM (4-12)
[2018-02-15 05:04] LABS: Alanine Aminotransferase < 6 U/L (13-56); Albumin 1.5 G/DL (3.4-5.0); Alkaline Phosphatase 54 U/L (45-117); Aspartate Amino Transferase 21 U/L (0-37); Blood Urea Nitrogen 6 MG/DL (7-18); Calcium 6.8 MG/DL (8.5-10.1); Glucose 85 MG/DL (74-106); Osmolality,Calculated 271.7 MOS/KG (273-304); Potassium 3.3 MMOL/L (3.5-5.1); Sodium 138 MMOL/L (136-145)
[2018-02-15] MEDS: SUCRALFATE 1 GM/10 ML UDCUP PO SCH ×4 (08:11→21:04)
[2018-02-15] MEDS: POTASSIUM CHLORIDE 20 MEQ TABLET PO SCH (08:11)
[2018-02-15] MEDS: SODIUM CHLORIDE 0.9% 1,000 ML IV SCH (08:12)
[2018-02-15] MEDS: CLOTRIMAZOLE 1% CREAM 15 GM TUBE TOP SCH ×2 (08:45→21:04)
[2018-02-15] MEDS ORDERED: MYLANTA/LIDO VISC/DIPH 300 ML BOTTLE SWISH/SPIT PRN (09:01)
[2018-02-15] MEDS: SODIUM CHLOR 0.9% KCL 20 MEQ 20 MEQ/1,000 ML BAG IV SCH (12:36)
[2018-02-15] MEDS: DOXEPIN 25 MG CAPSULE PO SCH (21:04)
[2018-02-15] MEDS: DOXEPIN 100 MG CAPSULE PO SCH (21:04)
[2018-02-16] MEDS: HYDROmorphone 2 MG/1 ML VIAL IV PRN ×6 (04:13→20:35)
[2018-02-16] MEDS: SODIUM CHLOR 0.9% KCL 20 MEQ 20 MEQ/1,000 ML BAG IV SCH ×2 (06:23→23:56)
[2018-02-16 06:34] LABS: Basophils % 0.4 % (0.0-0.8); Hematocrit 24.5 VOL% (35.7-47.0); Hemoglobin 7.8 GM/DL (12.0-16.0); Immature Granulocytes % 4.3 %; Immature Granulocytes Absolute 0.11 #; Lymphocytes # 0.3 10*3/uL (1.4-4.0); Lymphocytes % 10.9 % (21.3-54.2); Mean Corpuscular HGB Conc 31.8 GM/DL (32-36); Mean Corpuscular Hemoglobin 26 PG (27-34); Mean Corpuscular Volume 82.8 FL (87-102); Mean Platelet Volume 10.5 FL (9.6-12.0); Monocytes # 0.3 10*3/uL (0.11-0.8); Monocytes % 12.1 % (1.7-12.7); NRBC # 0.02 10*3/uL; Neutrophils # 1.9 10*3/uL (1.4-7.4); Neutrophils % 72.3 % (38.7-73.9); Platelet Count 188 T/CUMM (130-400); Red Blood Count 2.96 MC/CUMM (3.8-5.5); Red Cell Distribution Width 18.8 % (9.3-17.3); White Blood Count 2.6 T/CUMM (4-12)
[2018-02-16 06:57] LABS: Alanine Aminotransferase < 9 U/L (13-56); Albumin 1.6 G/DL (3.4-5.0); Alkaline Phosphatase 60 U/L (45-117); Aspartate Amino Transferase 29 U/L (0-37); Blood Urea Nitrogen 8 MG/DL (7-18); Glucose 86 MG/DL (74-106); Osmolality,Calculated 275.4 MOS/KG (273-304); Potassium 3.9 MMOL/L (3.5-5.1); Sodium 140 MMOL/L (136-145); Total Protein 5.2 G/DL (6.4-8.3)
[2018-02-16 07:18] LABS: Band Neutrophils 35 % (0-10); Eosinophils 1 % (0-10); Lymphocytes 11 % (20-55); Myelocytes 1 %; Platelet Estimate Normal; Segmented Neutrophils 37 % (50-85); Total Cells Counted 100
[2018-02-16 07:19] LABS: Anisocytosis Slight; Polychromasia Slight
[2018-02-16] MEDS: CLOTRIMAZOLE 1% CREAM 15 GM TUBE TOP SCH ×2 (08:20→21:15)
[2018-02-16] MEDS: SUCRALFATE 1 GM/10 ML UDCUP PO SCH ×4 (08:21→20:34)
[2018-02-16] MEDS: POTASSIUM CHLORIDE 20 MEQ TABLET PO SCH (08:21)
[2018-02-16] MEDS ORDERED: MAGNESIUM SULF RIDER 4 GM in PREMIX 1 EACH IV ONE (08:49)
[2018-02-16] MEDS: DOXEPIN 100 MG CAPSULE PO SCH (20:35)
[2018-02-16] MEDS: DOXEPIN 25 MG CAPSULE PO SCH (20:35)
[2018-02-17] MEDS: HYDROmorphone 2 MG/1 ML VIAL IV PRN ×7 (01:29→21:38)
[2018-02-17 05:17] LABS: Basophils % 0.5 % (0.0-0.8); Hematocrit 25.8 VOL% (35.7-47.0); Hemoglobin 7.9 GM/DL (12.0-16.0); Immature Granulocytes % 2.4 %; Immature Granulocytes Absolute 0.05 #; Lymphocytes # 0.3 10*3/uL (1.4-4.0); Lymphocytes % 12.9 % (21.3-54.2); Mean Corpuscular HGB Conc 30.6 GM/DL (32-36); Mean Corpuscular Hemoglobin 26 PG (27-34); Mean Corpuscular Volume 85.1 FL (87-102); Monocytes # 0.2 10*3/uL (0.11-0.8); Neutrophils # 1.5 10*3/uL (1.4-7.4); Neutrophils % 73.2 % (38.7-73.9); Platelet Count 165 T/CUMM (130-400); Red Blood Count 3.03 MC/CUMM (3.8-5.5); Red Cell Distribution Width 18.6 % (9.3-17.3); White Blood Count 2.1 T/CUMM (4-12)
[2018-02-17 05:38] LABS: Albumin 1.7 G/DL (3.4-5.0); Bilirubin,Total 0.6 MG/DL (0.2-1.0); Calcium 7.8 MG/DL (8.5-10.1); Osmolality,Calculated 275.5 MOS/KG (273-304); Potassium 4.4 MMOL/L (3.5-5.1); Total Protein 5.3 G/DL (6.4-8.3)
[2018-02-17 05:39] LABS: Band Neutrophils 2 % (0-10); Eosinophils 1 % (0-10); Hypochromasia 1+; Lymphocytes 11 % (20-55); Microcytosis 1+; Platelet Estimate Normal; Segmented Neutrophils 76 % (50-85); Total Cells Counted 100
[2018-02-17] MEDS ORDERED: SODIUM CHLORIDE 0.9% 1,000 ML IV PRN (07:30)
[2018-02-17] MEDS: SODIUM CHLOR 0.9% KCL 20 MEQ 20 MEQ/1,000 ML BAG IV SCH (08:15)
[2018-02-17] MEDS: SUCRALFATE 1 GM/10 ML UDCUP PO SCH ×4 (09:53→20:08)
[2018-02-17] MEDS: POTASSIUM CHLORIDE 20 MEQ TABLET PO SCH (09:54)
[2018-02-17] MEDS: fentaNYL 100 MCG/HR PATCH TRANSDERM SCH (10:01)
[2018-02-17] MEDS: fentaNYL 25 MCG/HR PATCH TRANSDERM SCH (10:02)
[2018-02-17] MEDS: CLOTRIMAZOLE 1% CREAM 15 GM TUBE TOP SCH ×2 (10:02→20:08)
[2018-02-17] MEDS ORDERED: HEPARIN LOCK FLUSH 500 UNIT/5 ML SYRINGE IV ONE (19:24)
[2018-02-17] MEDS: DOXEPIN 25 MG CAPSULE PO SCH (20:07)
[2018-02-17] MEDS: DOXEPIN 100 MG CAPSULE PO SCH (20:07)
[2018-02-18] MEDS: HYDROmorphone 2 MG/1 ML VIAL IV PRN ×8 (03:04→23:04)
[2018-02-18 05:14] LABS: Basophils % 0.8 % (0.0-0.8); Hematocrit 30.7 VOL% (35.7-47.0); Hemoglobin 9.7 GM/DL (12.0-16.0); Immature Granulocytes % 2.8 %; Immature Granulocytes Absolute 0.07 #; Lymphocytes # 0.4 10*3/uL (1.4-4.0); Mean Corpuscular HGB Conc 31.6 GM/DL (32-36); Mean Corpuscular Hemoglobin 26 PG (27-34); Mean Corpuscular Volume 83.7 FL (87-102); Mean Platelet Volume 10.2 FL (9.6-12.0); Monocytes # 0.3 10*3/uL (0.11-0.8); Monocytes % 11.4 % (1.7-12.7); Neutrophils # 1.8 10*3/uL (1.4-7.4); Platelet Count 171 T/CUMM (130-400); Red Blood Count 3.67 MC/CUMM (3.8-5.5); Red Cell Distribution Width 18.2 % (9.3-17.3); White Blood Count 2.5 T/CUMM (4-12)
[2018-02-18 05:42] LABS: Albumin 1.6 G/DL (3.4-5.0); Bilirubin,Total 0.5 MG/DL (0.2-1.0); Osmolality,Calculated 274.5 MOS/KG (273-304); Potassium 4.4 MMOL/L (3.5-5.1); Total Protein 5.5 G/DL (6.4-8.3)
[2018-02-18 06:08] LABS: Band Neutrophils 2 % (0-10); Hypochromasia 1+; Lymphocytes 9 % (20-55); Ovalocytes Slight; Platelet Estimate Adequate; Segmented Neutrophils 80 % (50-85); Total Cells Counted 100
[2018-02-18 06:09] LABS: Microcytosis Slight
[2018-02-18] MEDS: POTASSIUM CHLORIDE 20 MEQ TABLET PO SCH (08:56)
[2018-02-18] MEDS: SUCRALFATE 1 GM/10 ML UDCUP PO SCH ×4 (08:56→20:33)
[2018-02-18] MEDS: CLOTRIMAZOLE 1% CREAM 15 GM TUBE TOP SCH ×2 (09:02→20:33)
[2018-02-18] MEDS ORDERED: HEPARIN LOCK FLUSH 500 UNIT/5 ML SYRINGE IV ONE (15:34)
[2018-02-18] MEDS: DOXEPIN 100 MG CAPSULE PO SCH (20:32)
[2018-02-18] MEDS: DOXEPIN 25 MG CAPSULE PO SCH (20:32)
[2018-02-19 03:16] LABS: Basophils % 0.8 % (0.0-0.8); Eosinophils % 0.4 % (0.00-10.9); Hematocrit 29.1 VOL% (35.7-47.0); Hemoglobin 9.1 GM/DL (12.0-16.0); Immature Granulocytes % 2.1 %; Immature Granulocytes Absolute 0.05 #; Lymphocytes # 0.5 10*3/uL (1.4-4.0); Lymphocytes % 18.6 % (21.3-54.2); Mean Corpuscular HGB Conc 31.3 GM/DL (32-36); Mean Corpuscular Hemoglobin 26 PG (27-34); Mean Corpuscular Volume 84.1 FL (87-102); Mean Platelet Volume 10.4 FL (9.6-12.0); Monocytes # 0.3 10*3/uL (0.11-0.8); Monocytes % 12.4 % (1.7-12.7); Neutrophils # 1.6 10*3/uL (1.4-7.4); Neutrophils % 65.7 % (38.7-73.9); Platelet Count 166 T/CUMM (130-400); Red Blood Count 3.46 MC/CUMM (3.8-5.5); Red Cell Distribution Width 18.5 % (9.3-17.3); White Blood Count 2.4 T/CUMM (4-12)
[2018-02-19] MEDS: HYDROmorphone 2 MG/1 ML VIAL IV PRN ×2 (03:28→06:22)
[2018-02-19 03:42] LABS: Albumin 1.6 G/DL (3.4-5.0); Bilirubin,Total 0.8 MG/DL (0.2-1.0); Calcium 8.3 MG/DL (8.5-10.1); Osmolality,Calculated 274.5 MOS/KG (273-304); Potassium 4.2 MMOL/L (3.5-5.1); Total Protein 5.4 G/DL (6.4-8.3)
[2018-02-19 04:34] LABS: Atypical Lymphocytes Few; Band Neutrophils 5 % (0-10); Eosinophils 2 % (0-10); Lymphocytes 24 % (20-55); Platelet Estimate Normal; Segmented Neutrophils 65 % (50-85); Total Cells Counted 100
[2018-02-19] MEDS ORDERED: HYDROmorphone 2 MG/1 ML VIAL IV PRN (06:57)
[2018-02-19] MEDS: POTASSIUM CHLORIDE 20 MEQ TABLET PO SCH (09:23)
[2018-02-19] MEDS: HYDROmorphone 2 MG TABLET PO PRN ×4 (09:23→21:02)
[2018-02-19] MEDS: SUCRALFATE 1 GM/10 ML UDCUP PO SCH ×4 (09:23→21:03)
[2018-02-19] MEDS: CLOTRIMAZOLE 1% CREAM 15 GM TUBE TOP SCH ×2 (09:24→21:06)
[2018-02-19] MEDS: DOXEPIN 25 MG CAPSULE PO SCH (21:03)
[2018-02-19] MEDS: DOXEPIN 100 MG CAPSULE PO SCH (21:03)
[2018-02-20] MEDS: HYDROmorphone 2 MG TABLET PO PRN ×7 (00:18→20:30)
[2018-02-20 03:34] LABS: Basophils % 0.4 % (0.0-0.8); Eosinophils % 0.8 % (0.00-10.9); Hematocrit 29.6 VOL% (35.7-47.0); Hemoglobin 9.4 GM/DL (12.0-16.0); Immature Granulocytes % 2.6 %; Immature Granulocytes Absolute 0.07 #; Lymphocytes # 0.6 10*3/uL (1.4-4.0); Lymphocytes % 21.1 % (21.3-54.2); Mean Corpuscular HGB Conc 31.8 GM/DL (32-36); Mean Corpuscular Hemoglobin 27 PG (27-34); Mean Corpuscular Volume 83.9 FL (87-102); Mean Platelet Volume 9.9 FL (9.6-12.0); Monocytes # 0.4 10*3/uL (0.11-0.8); Monocytes % 14.3 % (1.7-12.7); Neutrophils # 1.6 10*3/uL (1.4-7.4); Neutrophils % 60.8 % (38.7-73.9); Platelet Count 151 T/CUMM (130-400); Red Blood Count 3.53 MC/CUMM (3.8-5.5); Red Cell Distribution Width 18.3 % (9.3-17.3); White Blood Count 2.7 T/CUMM (4-12)
[2018-02-20 03:59] LABS: Albumin 1.7 G/DL (3.4-5.0); Bilirubin,Total 0.6 MG/DL (0.2-1.0); Calcium 8.7 MG/DL (8.5-10.1); Osmolality,Calculated 274.5 MOS/KG (273-304); Potassium 4.2 MMOL/L (3.5-5.1); Total Protein 5.5 G/DL (6.4-8.3)
[2018-02-20] MEDS: fentaNYL 100 MCG/HR PATCH TRANSDERM SCH (08:13)
[2018-02-20] MEDS: fentaNYL 25 MCG/HR PATCH TRANSDERM SCH (08:18)
[2018-02-20] MEDS: POTASSIUM CHLORIDE 20 MEQ TABLET PO SCH (08:19)
[2018-02-20] MEDS: SUCRALFATE 1 GM/10 ML UDCUP PO SCH ×4 (08:19→20:29)
[2018-02-20] MEDS: CLOTRIMAZOLE 1% CREAM 15 GM TUBE TOP SCH ×2 (08:23→20:35)
[2018-02-20] MEDS: DOXEPIN 100 MG CAPSULE PO SCH (20:30)
[2018-02-20] MEDS: DOXEPIN 25 MG CAPSULE PO SCH (20:30)
[2018-02-21] MEDS: HYDROmorphone 2 MG TABLET PO PRN ×6 (04:32→21:30)
[2018-02-21 04:58] LABS: Basophils % 0.3 % (0.0-0.8); Eosinophils % 0.7 % (0.00-10.9); Hematocrit 28.9 VOL% (35.7-47.0); Hemoglobin 9.4 GM/DL (12.0-16.0); Immature Granulocytes % 2.6 %; Immature Granulocytes Absolute 0.08 #; Lymphocytes # 0.7 10*3/uL (1.4-4.0); Lymphocytes % 22.1 % (21.3-54.2); Mean Corpuscular HGB Conc 32.5 GM/DL (32-36); Mean Corpuscular Hemoglobin 27 PG (27-34); Mean Platelet Volume 10.1 FL (9.6-12.0); Monocytes # 0.5 10*3/uL (0.11-0.8); Monocytes % 14.7 % (1.7-12.7); Neutrophils # 1.8 10*3/uL (1.4-7.4); Neutrophils % 59.6 % (38.7-73.9); Platelet Count 143 T/CUMM (130-400); Red Blood Count 3.44 MC/CUMM (3.8-5.5); Red Cell Distribution Width 18.4 % (9.3-17.3); White Blood Count 3.1 T/CUMM (4-12)
[2018-02-21 05:31] LABS: Alanine Aminotransferase < 9 U/L (13-56); Alkaline Phosphatase 87 U/L (45-117); Aspartate Amino Transferase 21 U/L (0-37); Blood Urea Nitrogen 10 MG/DL (7-18); Calcium 8.5 MG/DL (8.5-10.1); Glucose 81 MG/DL (74-106); Osmolality,Calculated 272.7 MOS/KG (273-304); Potassium 4.2 MMOL/L (3.5-5.1); Sodium 138 MMOL/L (136-145); Total Protein 5.7 G/DL (6.4-8.3)
[2018-02-21] MEDS: POTASSIUM CHLORIDE 20 MEQ TABLET PO SCH (09:13)
[2018-02-21] MEDS: SUCRALFATE 1 GM/10 ML UDCUP PO SCH ×4 (09:13→20:52)
[2018-02-21] MEDS: CLOTRIMAZOLE 1% CREAM 15 GM TUBE TOP SCH ×2 (09:14→20:55)
[2018-02-21] MEDS ORDERED: HEPARIN LOCK FLUSH 500 UNIT/5 ML SYRINGE IV ONE (10:45)
[2018-02-21] MEDS: DOXEPIN 25 MG CAPSULE PO SCH (20:52)
[2018-02-21] MEDS: DOXEPIN 100 MG CAPSULE PO SCH (20:52)
[2018-02-22] MEDS: HYDROmorphone 2 MG TABLET PO PRN ×9 (00:50→22:41)
[2018-02-22 05:26] LABS: Basophils % 0.3 % (0.0-0.8); Eosinophils % 1.3 % (0.00-10.9); Hematocrit 30.2 VOL% (35.7-47.0); Hemoglobin 9.2 GM/DL (12.0-16.0); Immature Granulocytes % 2.8 %; Immature Granulocytes Absolute 0.09 #; Lymphocytes # 0.8 10*3/uL (1.4-4.0); Mean Corpuscular HGB Conc 30.5 GM/DL (32-36); Mean Corpuscular Hemoglobin 27 PG (27-34); Mean Corpuscular Volume 87.5 FL (87-102); Mean Platelet Volume 9.6 FL (9.6-12.0); Monocytes # 0.5 10*3/uL (0.11-0.8); Monocytes % 14.9 % (1.7-12.7); Neutrophils # 1.8 10*3/uL (1.4-7.4); Neutrophils % 55.7 % (38.7-73.9); Platelet Count 133 T/CUMM (130-400); Red Blood Count 3.45 MC/CUMM (3.8-5.5); Red Cell Distribution Width 18.4 % (9.3-17.3); White Blood Count 3.2 T/CUMM (4-12)
[2018-02-22 06:13] LABS: Alanine Aminotransferase < 9 U/L (13-56); Alkaline Phosphatase 94 U/L (45-117); Aspartate Amino Transferase 20 U/L (0-37); Blood Urea Nitrogen 10 MG/DL (7-18); Calcium 8.9 MG/DL (8.5-10.1); Glucose 82 MG/DL (74-106); Osmolality,Calculated 270.8 MOS/KG (273-304); Potassium 4.2 MMOL/L (3.5-5.1); Sodium 137 MMOL/L (136-145); Total Protein 5.8 G/DL (6.4-8.3)
[2018-02-22] MEDS: POTASSIUM CHLORIDE 20 MEQ TABLET PO SCH (08:51)
[2018-02-22] MEDS: SUCRALFATE 1 GM/10 ML UDCUP PO SCH ×4 (08:52→20:18)
[2018-02-22] MEDS: CLOTRIMAZOLE 1% CREAM 15 GM TUBE TOP SCH ×2 (08:53→22:43)
[2018-02-22] MEDS: DOXEPIN 100 MG CAPSULE PO SCH (20:18)
[2018-02-22] MEDS: DOXEPIN 25 MG CAPSULE PO SCH (20:18)
[2018-02-23 03:22] LABS: Basophils % 0.5 % (0.0-0.8); Eosinophils # 0.1 10*3/uL (0.0-0.87); Eosinophils % 1.3 % (0.00-10.9); Hematocrit 28.8 VOL% (35.7-47.0); Immature Granulocytes % 2.9 %; Immature Granulocytes Absolute 0.11 #; Lymphocytes # 0.8 10*3/uL (1.4-4.0); Lymphocytes % 20.4 % (21.3-54.2); Mean Corpuscular HGB Conc 31.3 GM/DL (32-36); Mean Corpuscular Hemoglobin 27 PG (27-34); Mean Corpuscular Volume 86.5 FL (87-102); Mean Platelet Volume 10.5 FL (9.6-12.0); Monocytes # 0.6 10*3/uL (0.11-0.8); Monocytes % 16.4 % (1.7-12.7); Neutrophils # 2.2 10*3/uL (1.4-7.4); Neutrophils % 58.5 % (38.7-73.9); Platelet Count 138 T/CUMM (130-400); Red Blood Count 3.33 MC/CUMM (3.8-5.5); Red Cell Distribution Width 18.1 % (9.3-17.3); White Blood Count 3.8 T/CUMM (4-12)
[2018-02-23 03:55] LABS: Alanine Aminotransferase < 9 U/L (13-56); Albumin 2.1 G/DL (3.4-5.0); Alkaline Phosphatase 95 U/L (45-117); Aspartate Amino Transferase 18 U/L (0-37); Blood Urea Nitrogen 11 MG/DL (7-18); Calcium 8.8 MG/DL (8.5-10.1); Glucose 84 MG/DL (74-106); Osmolality,Calculated 270.8 MOS/KG (273-304); Potassium 4.4 MMOL/L (3.5-5.1); Sodium 137 MMOL/L (136-145); Total Protein 5.7 G/DL (6.4-8.3)
[2018-02-23 04:34] LABS: Anisocytosis 2+; Band Neutrophils 2 % (0-10); Eosinophils 3 % (0-10); Lymphocytes 22 % (20-55); Macrocytosis Slight; Microcytosis 1+; Platelet Estimate Decreased; Segmented Neutrophils 61 % (50-85); Total Cells Counted 100
[2018-02-23] MEDS: HYDROmorphone 2 MG TABLET PO PRN ×5 (05:48→21:11)
[2018-02-23] MEDS: fentaNYL 100 MCG/HR PATCH TRANSDERM SCH (10:03)
[2018-02-23] MEDS: POTASSIUM CHLORIDE 20 MEQ TABLET PO SCH (10:03)
[2018-02-23] MEDS: SUCRALFATE 1 GM/10 ML UDCUP PO SCH ×4 (10:03→21:11)
[2018-02-23] MEDS: CLOTRIMAZOLE 1% CREAM 15 GM TUBE TOP SCH ×2 (10:04→22:53)
[2018-02-23] MEDS: DEXTROSE 5% NACL 0.45% 1,000 ML IV SCH ×2 (13:14→21:17)
[2018-02-23] MEDS: ONDANSETRON 4 MG/2 ML VIAL IV PRN (15:24)
[2018-02-23] MEDS: DOXEPIN 25 MG CAPSULE PO SCH (21:11)
[2018-02-23] MEDS: DOXEPIN 100 MG CAPSULE PO SCH (21:11)
[2018-02-24 02:42] LABS: Basophils % 0.5 % (0.0-0.8); Eosinophils # 0.1 10*3/uL (0.0-0.87); Eosinophils % 2.7 % (0.00-10.9); Hematocrit 29.6 VOL% (35.7-47.0); Hemoglobin 9.2 GM/DL (12.0-16.0); Immature Granulocytes % 1.6 %; Immature Granulocytes Absolute 0.06 #; Lymphocytes # 0.8 10*3/uL (1.4-4.0); Lymphocytes % 22.4 % (21.3-54.2); Mean Corpuscular HGB Conc 31.1 GM/DL (32-36); Mean Corpuscular Hemoglobin 27 PG (27-34); Mean Corpuscular Volume 87.3 FL (87-102); Mean Platelet Volume 9.6 FL (9.6-12.0); Monocytes # 0.6 10*3/uL (0.11-0.8); Monocytes % 16.8 % (1.7-12.7); Neutrophils # 2.1 10*3/uL (1.4-7.4); Platelet Count 119 T/CUMM (130-400); Red Blood Count 3.39 MC/CUMM (3.8-5.5); Red Cell Distribution Width 18.3 % (9.3-17.3); White Blood Count 3.8 T/CUMM (4-12)
[2018-02-24 03:14] LABS: Band Neutrophils 1 % (0-10); Eosinophils 4 % (0-10); Lymphocytes 23 % (20-55); Metamyelocytes 1 %; Reactive Lymphocytes 2+; Segmented Neutrophils 56 % (50-85); Total Cells Counted 100
[2018-02-24 03:15] LABS: Hypochromasia 1+
[2018-02-24 03:16] LABS: Microcytosis 1+; Platelet Estimate Adequate
[2018-02-24 03:17] LABS: Polychromasia Few
[2018-02-24 03:22] LABS: Bilirubin,Total 0.4 MG/DL (0.2-1.0); Calcium 8.1 MG/DL (8.5-10.1); Osmolality,Calculated 266.2 MOS/KG (273-304); Potassium 4.2 MMOL/L (3.5-5.1); Total Protein 5.8 G/DL (6.4-8.3)
[2018-02-24] MEDS: DEXTROSE 5% NACL 0.45% 1,000 ML IV SCH ×2 (05:49→19:17)
[2018-02-24] MEDS: HYDROmorphone 2 MG TABLET PO PRN ×6 (09:00→23:49)
[2018-02-24] MEDS: SUCRALFATE 1 GM/10 ML UDCUP PO SCH ×4 (09:36→20:12)
[2018-02-24] MEDS: POTASSIUM CHLORIDE 20 MEQ TABLET PO SCH (09:36)
[2018-02-24] MEDS: CLOTRIMAZOLE 1% CREAM 15 GM TUBE TOP SCH ×2 (09:37→20:33)
[2018-02-24] MEDS ORDERED: GRANISETRON 1 MG/1 ML VIAL IV SCH (12:00)
[2018-02-24] MEDS ORDERED: DEXAMETHASONE INJ 10 MG in SODIUM CHLORIDE 0.9% 50 ML IV SCH (12:00)
[2018-02-24] MEDS: DOXEPIN 25 MG CAPSULE PO SCH (20:11)
[2018-02-24] MEDS: DOXEPIN 100 MG CAPSULE PO SCH (20:12)
[2018-02-24 21:37] LABS: Apearance,Urine CLEAR (Clear); Bilirubin,Urine Negative (Negative); Blood, Urine Negative (Negative); Glucose,Urine (UA) Negative (Negative); Ketones,Urine Negative (Negative); Nitrite,Urine Negative (Negative); Protein,Urine Negative; RBC,Urine <1 /HPF (0-4); Urine Color Yellow (Yellow); Urine Specific Gravity 1.003 (1.001-1.035); Urine Urobilinogen < 2.0 EU/DL (0.2-1.0); WBC,Urine <1 /HPF (0-6)
[2018-02-25] MEDS: HYDROmorphone 2 MG TABLET PO PRN ×7 (02:15→20:23)
[2018-02-25] MEDS: DEXTROSE 5% NACL 0.45% 1,000 ML IV SCH ×3 (03:19→22:18)
[2018-02-25 05:36] LABS: Basophils % 0.7 % (0.0-0.8); Eosinophils # 0.1 10*3/uL (0.0-0.87); Eosinophils % 2.8 % (0.00-10.9); Hematocrit 29.2 VOL% (35.7-47.0); Hemoglobin 9.2 GM/DL (12.0-16.0); Immature Granulocytes % 1.7 %; Immature Granulocytes Absolute 0.05 #; Lymphocytes # 0.6 10*3/uL (1.4-4.0); Lymphocytes % 20.5 % (21.3-54.2); Mean Corpuscular HGB Conc 31.5 GM/DL (32-36); Mean Corpuscular Hemoglobin 27 PG (27-34); Mean Corpuscular Volume 85.6 FL (87-102); Monocytes # 0.5 10*3/uL (0.11-0.8); Monocytes % 17.4 % (1.7-12.7); Neutrophils # 1.6 10*3/uL (1.4-7.4); Neutrophils % 56.9 % (38.7-73.9); Platelet Count 113 T/CUMM (130-400); Red Blood Count 3.41 MC/CUMM (3.8-5.5); Red Cell Distribution Width 18.1 % (9.3-17.3); White Blood Count 2.9 T/CUMM (4-12)
[2018-02-25 05:53] LABS: Alanine Aminotransferase < 9 U/L (13-56); Albumin 2.1 G/DL (3.4-5.0); Alkaline Phosphatase 97 U/L (45-117); Aspartate Amino Transferase 14 U/L (0-37); Blood Urea Nitrogen 9 MG/DL (7-18); Calcium 7.7 MG/DL (8.5-10.1); Glucose 86 MG/DL (74-106); Osmolality,Calculated 270.8 MOS/KG (273-304); Potassium 4.1 MMOL/L (3.5-5.1); Sodium 137 MMOL/L (136-145)
[2018-02-25 06:15] LABS: Anisocytosis Slight; Band Neutrophils 8 % (0-10); Eosinophils 3 % (0-10); Lymphocytes 20 % (20-55); Platelet Estimate Adequate; Segmented Neutrophils 55 % (50-85); Total Cells Counted 100
[2018-02-25] MEDS: POTASSIUM CHLORIDE 20 MEQ TABLET PO SCH (09:28)
[2018-02-25] MEDS: SUCRALFATE 1 GM/10 ML UDCUP PO SCH ×4 (09:29→20:24)
[2018-02-25] MEDS: CLOTRIMAZOLE 1% CREAM 15 GM TUBE TOP SCH ×2 (09:56→21:18)
[2018-02-25] MEDS: DOXEPIN 100 MG CAPSULE PO SCH (20:23)
[2018-02-25] MEDS: DOXEPIN 25 MG CAPSULE PO SCH (20:23)
[2018-02-25] MEDS: ZINC OXIDE PASTE 113 GM TUBE TOP SCH (20:29)
[2018-02-26] MEDS: DEXTROSE 5% NACL 0.45% 1,000 ML IV SCH ×2 (06:23→14:29)
[2018-02-26 07:45] LABS: Basophils % 0.3 % (0.0-0.8); Eosinophils # 0.2 10*3/uL (0.0-0.87); Hematocrit 27.4 VOL% (35.7-47.0); Hemoglobin 8.9 GM/DL (12.0-16.0); Immature Granulocytes % 2.5 %; Immature Granulocytes Absolute 0.08 #; Lymphocytes # 0.6 10*3/uL (1.4-4.0); Lymphocytes % 19.4 % (21.3-54.2); Mean Corpuscular HGB Conc 32.5 GM/DL (32-36); Mean Corpuscular Hemoglobin 28 PG (27-34); Mean Corpuscular Volume 84.6 FL (87-102); Mean Platelet Volume 9.8 FL (9.6-12.0); Monocytes # 0.5 10*3/uL (0.11-0.8); Monocytes % 15.9 % (1.7-12.7); Neutrophils # 1.8 10*3/uL (1.4-7.4); Neutrophils % 56.9 % (38.7-73.9); Platelet Count 107 T/CUMM (130-400); Red Blood Count 3.24 MC/CUMM (3.8-5.5); Red Cell Distribution Width 17.9 % (9.3-17.3); White Blood Count 3.2 T/CUMM (4-12)
[2018-02-26 08:13] LABS: Band Neutrophils 1 % (0-10); Eosinophils 3 % (0-10); Hypochromasia 1+; Lymphocytes 23 % (20-55); Microcytosis Slight; Ovalocytes Slight; Platelet Estimate Decreased; Segmented Neutrophils 50 % (50-85); Total Cells Counted 100
[2018-02-26 08:15] LABS: Alanine Aminotransferase < 9 U/L (13-56); Alkaline Phosphatase 97 U/L (45-117); Aspartate Amino Transferase 13 U/L (0-37); Blood Urea Nitrogen 7 MG/DL (7-18); Calcium 7.8 MG/DL (8.5-10.1); Glucose 91 MG/DL (74-106); Potassium 4.2 MMOL/L (3.5-5.1); Sodium 136 MMOL/L (136-145); Total Protein 5.9 G/DL (6.4-8.3)
[2018-02-26] MEDS ORDERED: SODIUM CHLORIDE 0.9% 1,000 ML IV PRN (08:34)
[2018-02-26] MEDS: CLOTRIMAZOLE 1% CREAM 15 GM TUBE TOP SCH ×2 (08:50→21:15)
[2018-02-26] MEDS: ZINC OXIDE PASTE 113 GM TUBE TOP SCH ×2 (08:51→21:15)
[2018-02-26] MEDS: POTASSIUM CHLORIDE 20 MEQ TABLET PO SCH (08:52)
[2018-02-26] MEDS: SUCRALFATE 1 GM/10 ML UDCUP PO SCH ×4 (08:52→20:40)
[2018-02-26] MEDS: fentaNYL 100 MCG/HR PATCH TRANSDERM SCH (08:53)
[2018-02-26] MEDS: HYDROmorphone 2 MG TABLET PO PRN ×4 (09:07→20:40)
[2018-02-26] MEDS: DOXEPIN 25 MG CAPSULE PO SCH (20:39)
[2018-02-26] MEDS: DOXEPIN 100 MG CAPSULE PO SCH (20:39)
[2018-02-27] MEDS: DEXTROSE 5% NACL 0.45% 1,000 ML IV SCH ×2 (05:53→08:19)
[2018-02-27] MEDS: HYDROmorphone 2 MG TABLET PO PRN ×4 (05:56→20:46)
[2018-02-27 07:25] LABS: Basophils % 0.6 % (0.0-0.8); Eosinophils # 0.2 10*3/uL (0.0-0.87); Eosinophils % 5.1 % (0.00-10.9); Immature Granulocytes % 2.1 %; Immature Granulocytes Absolute 0.07 #; Lymphocytes # 0.5 10*3/uL (1.4-4.0); Lymphocytes % 15.8 % (21.3-54.2); Mean Corpuscular HGB Conc 32.7 GM/DL (32-36); Mean Corpuscular Hemoglobin 28 PG (27-34); Mean Corpuscular Volume 84.6 FL (87-102); Mean Platelet Volume 9.8 FL (9.6-12.0); Monocytes # 0.6 10*3/uL (0.11-0.8); Monocytes % 17.3 % (1.7-12.7); Neutrophils % 59.1 % (38.7-73.9); Platelet Count 110 T/CUMM (130-400); White Blood Count 3.4 T/CUMM (4-12)
[2018-02-27 07:31] LABS: Hemoglobin 10.8 GM/DL (12.0-16.0)
[2018-02-27 08:21] LABS: Alanine Aminotransferase < 9 U/L (13-56); Alkaline Phosphatase 105 U/L (45-117); Aspartate Amino Transferase 15 U/L (0-37); Blood Urea Nitrogen 8 MG/DL (7-18); Calcium 8.2 MG/DL (8.5-10.1); Glucose 89 MG/DL (74-106); Osmolality,Calculated 266.1 MOS/KG (273-304); Potassium 4.3 MMOL/L (3.5-5.1); Sodium 135 MMOL/L (136-145); Total Protein 5.9 G/DL (6.4-8.3)
[2018-02-27] MEDS ORDERED: HEPARIN LOCK FLUSH 500 UNIT/5 ML SYRINGE IV ONE (08:29)
[2018-02-27] MEDS: POTASSIUM CHLORIDE 20 MEQ TABLET PO SCH (08:34)
[2018-02-27] MEDS: SUCRALFATE 1 GM/10 ML UDCUP PO SCH ×4 (08:34→20:38)
[2018-02-27] MEDS: ZINC OXIDE PASTE 113 GM TUBE TOP SCH ×2 (08:35→20:39)
[2018-02-27] MEDS: CLOTRIMAZOLE 1% CREAM 15 GM TUBE TOP SCH ×2 (09:15→20:39)
[2018-02-27 09:27] LABS: Anisocytosis Slight; Band Neutrophils 16 % (0-10); Eosinophils 4 % (0-10); Lymphocytes 21 % (20-55); Polychromasia Slight; Segmented Neutrophils 46 % (50-85); Total Cells Counted 100
[2018-02-27 09:28] LABS: Platelet Estimate Adequate
[2018-02-27] MEDS: DOXEPIN 25 MG CAPSULE PO SCH (20:38)
[2018-02-27] MEDS: DOXEPIN 100 MG CAPSULE PO SCH (20:38)
[2018-02-28] MEDS: HYDROmorphone 2 MG TABLET PO PRN ×3 (01:19→09:50)
[2018-02-28 06:16] LABS: Basophils % 0.5 % (0.0-0.8); Eosinophils # 0.2 10*3/uL (0.0-0.87); Eosinophils % 4.6 % (0.00-10.9); Hematocrit 34.7 VOL% (35.7-47.0); Hemoglobin 11.3 GM/DL (12.0-16.0); Immature Granulocytes % 1.9 %; Immature Granulocytes Absolute 0.07 #; Lymphocytes # 0.6 10*3/uL (1.4-4.0); Lymphocytes % 14.9 % (21.3-54.2); Mean Corpuscular HGB Conc 32.6 GM/DL (32-36); Mean Corpuscular Hemoglobin 28 PG (27-34); Mean Corpuscular Volume 85.7 FL (87-102); Mean Platelet Volume 9.5 FL (9.6-12.0); Monocytes # 0.6 10*3/uL (0.11-0.8); Monocytes % 15.5 % (1.7-12.7); Neutrophils # 2.3 10*3/uL (1.4-7.4); Neutrophils % 62.6 % (38.7-73.9); Platelet Count 105 T/CUMM (130-400); Red Blood Count 4.05 MC/CUMM (3.8-5.5); Red Cell Distribution Width 16.5 % (9.3-17.3); White Blood Count 3.7 T/CUMM (4-12)
[2018-02-28 06:54] LABS: Bilirubin,Total 0.5 MG/DL (0.2-1.0); Calcium 8.6 MG/DL (8.5-10.1); Osmolality,Calculated 266.2 MOS/KG (273-304); Potassium 4.5 MMOL/L (3.5-5.1); Total Protein 6.2 G/DL (6.4-8.3)
[2018-02-28] MEDS: POTASSIUM CHLORIDE 20 MEQ TABLET PO SCH (09:49)
[2018-02-28] MEDS: ZINC OXIDE PASTE 113 GM TUBE TOP SCH (09:50)
[2018-02-28] MEDS: CLOTRIMAZOLE 1% CREAM 15 GM TUBE TOP SCH (09:50)
[2018-02-28] MEDS: SUCRALFATE 1 GM/10 ML UDCUP PO SCH (09:50)
[2018-02-28 11:05] VITALS: BP 122/86
[2018-02-28] MEDS ORDERED: HEPARIN LOCK FLUSH 500 UNIT/5 ML SYRINGE IV ONE ×2 (12:08→12:11)
== END 2018-02-28 12:15 | disposition home health service (06) | DRG 330 ==
LOC: N.ED 17:21 → N.EDINP 17:21 → N.4E 20:51
PROVIDERS: ADMIT Specialist; ATTEND Specialist